=== PATIENT | female | born 1995 | race Caucasian/White ===

== ENCOUNTER 2018-06-08 19:32 | Inpatient (IN) | payer OTHER ==
[~2018-06-08 19:32] MED LIST: Dexamethasone 20 MG/5 ML VIAL ONE; Ketorolac Tromethamine 30 MG/ML VIAL ONE; Ondansetron HCl/PF 4 MG/2 ML Vial ONE; PHENYLEPHRINE-NS 100 MCG/ML 10 ML SYRINGE ONE
[2018-06-08 19:54] LABS: Amnisure Test RUPTURE DETECTED (No Rupture)
[2018-06-08 19:55] LABS: Amnisure Internal Control QC ACCEPTABLE (ACCEPTABLE)
[2018-06-08] MEDS ORDERED: Promethazine HCl 25 MG/ML VIAL IM PRN ×2 (20:15→23:00)
[2018-06-08] MEDS ORDERED: Acetaminophen 500 MG TAB PO PRN (20:15)
[2018-06-08] MEDS ORDERED: Ondansetron HCl/PF 4 MG/2 ML Vial IVP PRN ×3 (20:15→23:00)
[2018-06-08] MEDS ORDERED: Butorphanol Tartrate 1 MG/ML VIAL SLOW IVP PRN (20:15)
[2018-06-08] MEDS ORDERED: NS / Oxytocin 40 units/1000ml 1,000 ML IV PRN (20:15)
[2018-06-08] MEDS ORDERED: Lidocaine 1% (PF) 30 ML VIAL SC PRN (20:15)
[2018-06-08] MEDS ORDERED: NS w/ Oxytocin 10 units 500 ML IV SCH (20:15)
[2018-06-08] MEDS ORDERED: Penicillin G Potassium 5 MILL.UNITS in Sodium Chloride 0.9% 100 ML IVPB SCH (20:15)
[2018-06-08] MEDS ORDERED: Ibuprofen 800 MG TAB PO PRN (20:15)
--- NOTE | 2018-06-08 20:35 | PDOC.LDHP ---
Labor and Delivery H&P Chief complaint: loss of fluid HPI: This is a 23 yo female, at 37.2 by LMP (38.6 by 3rd tri US) presenting to L&D with a cc of SROM. She states that she had a loss of fluid at ~14:00 today. She denies any vaginal bleeding, contractions, or abdominal pain. She denies any headaches, chest pain, or nausea and vomiting. She states that she has been constipated and has had some lower leg edema. Current gestational age (weeks): 37 (37.2) Due date: 06/28/18 Dating criteria: last menstrual period, other (third trimester US 38.6) Current complications: none Abnormal US findings: No Past Medical History: Pt. has no past medical history Current medications: pre- vitamins Previous surgical history: none Social history: other (Denies tobacco use during this pregnacy, States that she smoked for 3 months in the past.) - Physical Exam Vital signs reviewed and normal: yes General: NAD, resting Heart: RRR Lungs: CTAB Abdomen: gravid Extremeties: trace edema FHT: variability present (Reactive strip, FHT baseline in the 130s-140s, moderate variability, no contractions present) - Vaginal Exam cm dilated: 1 Effacement: 50% Station: -3 - OB Labs Blood type: unknown RH: unknown Antibody Screen: unknown HIV: unknown RPR: unknown GBS: unknown - Assessment L&D Assessment: term rupture in membranes (No contractions at this time, drawing OB labs now due to poor PN follow up) - Plan Plan: admit to L&D, cervical ripening (Cytotec 50mg PO q4 x2 dose. Will recheck at that time and consider pitocin augmentation), GBS antibiotic prophylaxis, other (Currently refuses epidural) <Nir Ryder - Last Filed: 06/08/18 20:31> <Fernandez Jeffery - Last Filed: 06/08/18 20:59> Allergies/Adverse Reactions: Allergies Allergy/AdvReac Type Severity Reaction Status Date / Time No Known Allergies Allergy Verified 06/08/18 20:01 Attending Addendum - Attending Addendum Date/Time: 06/08/182056 I personally evaluated the patient and discussed the management with Residents. I agree with the History, Examination, Assessment and Plan. This at term has been ruptured since 2PM. Will give Cytotec PO with pitocin to follow and start Pen G for unknown GBS status. <Fernandez Jeffery - Last Filed: 06/08/18 20:59>
[2018-06-08 20:40] LABS: Hemoglobin 10.4 g/dL (12.0-16.0); Mean Corpuscular HGB CONC 33.8 g/dL (32.0-36.0); Mean Corpuscular Volume 88.7 fL (78.0-98.0); Mean Platelet Volume 8.6 fL (7.4-10.4); Platelet Count 175 thou/uL (130-400); RBC Distribution Width 11.9 % (11.5-14.5); Red Blood Cell (RBC) Count 3.48 mill/uL (4.20-5.40); White Blood Cell (WBC) Count 8.6 thou/uL (4.8-10.8)
[2018-06-08] MEDS: Misoprostol 100 MCG TAB PO SCH (21:03)
[2018-06-08] MEDS: Penicillin G 2.5 MILL.units 2.5 MILL.UNITS in Premix Bag 1 BAG IVPB SCH (21:04)
[2018-06-08] MEDS: Lactated Ringer's 1,000 ML IV SCH (21:05)
[2018-06-08 21:26] LABS: Syphilis Antibody Nonreactive (Nonreactive); Syphilis Antibody Index 0.06 S/CO (<1.00 Non-Reactive)
[2018-06-08] MEDS ORDERED: Terbutaline Sulfate 1 MG/ML VIAL ONE (21:27)
[2018-06-08] MEDS ORDERED: CEFAZOLIN/Water 2 GM/20 ML SYRINGE ONE (21:37)
[2018-06-08] MEDS ORDERED: Lidocaine 1% PF 5 ML VIAL ONE (21:53)
[2018-06-08] MEDS ORDERED: Bupivacaine 0.75% W/DEXTROSE 8.25% 2 ML AMP ONE (21:53)
[2018-06-08] MEDS ORDERED: Morphine PF 1 MG/ML SYR ONE (21:54)
[2018-06-08] MEDS ORDERED: PHENYLEPHRINE-NS 100 MCG/ML 10 ML SYRINGE ONE (22:10)
[2018-06-08] MEDS ORDERED: Ketorolac Tromethamine 30 MG/ML VIAL ONE (22:13)
[2018-06-08] MEDS ORDERED: Ondansetron HCl/PF 4 MG/2 ML Vial ONE (22:13)
[2018-06-08] MEDS ORDERED: Dexamethasone 4 mg/ml Vial ONE (22:13)
[2018-06-08] MEDS ORDERED: Oxytocin 10 UNITS/ML VIAL ONE (22:13)
[2018-06-08 22:33] LABS: Actual Bicarbonate (HCO3a) 22.8 mEq/L (22-28); Analyzer IN Cardio OR; Base Excess (BEa) -4.3 mEq/L (-2.0 to +3.0)
[2018-06-08] MEDS ORDERED: diphenhydrAMINE 50 MG/ML VIAL IVP PRN (23:00)
[2018-06-08] MEDS ORDERED: Eucerin (Mineral Oil/Petrolatum,White) 30 gm Jar TOP PRN (23:00)
[2018-06-08] MEDS ORDERED: Ketorolac Tromethamine 30 MG/ML VIAL IVP PRN (23:00)
[2018-06-08] MEDS ORDERED: Promethazine HCl 25 MG SUPP PR PRN (23:00)
[2018-06-08] MEDS ORDERED: Ketorolac Tromethamine 30 MG/ML VIAL IVP SCH (23:00)
[2018-06-08] MEDS ORDERED: Meperidine HCl/PF 25 MG/ML VIAL SLOW IVP PRN (23:00)
[2018-06-08] MEDS ORDERED: Communication Order-Pharmacy FS SCH (23:00)
[2018-06-08] MEDS ORDERED: HYDROmorphone 2 MG/ML VIAL SLOW IVP PRN (23:00)
[2018-06-08] MEDS ORDERED: Naloxone HCl 0.4 mg/ml Vial IV PRN (23:00)
[2018-06-08] MEDS ORDERED: Naloxone HCl 0.4 mg/ml Vial IVP PRN ×2 (23:00)
[2018-06-09] MEDS ORDERED: NS / Oxytocin 40 units/1000ml 1,000 ML ONE (00:20)
[2018-06-09 00:46] LABS: HBSAg Index 0.16 S/CO (0-0.99); HIV (1/2) Antibody/Antigen Non-Reactive (NonReactive); HIV 1/2 INDEX 0.14 S/CO (<1.00); Hep B Surf Ag Non-Reactive S/CO (NonReactive)
[2018-06-09] MEDS ORDERED: Lanolin Ointment 7 GM TUBE TOP PRN (01:37)
[2018-06-09] MEDS ORDERED: HYDROcodone/Acetaminophen 5/325 mg Tablet PO PRN ×2 (01:37)
[2018-06-09] MEDS ORDERED: Adacel (T-DAP) 0.5 ML VIAL IM ONE (01:37)
[2018-06-09] MEDS ORDERED: Ondansetron HCl/PF 4 MG/2 ML Vial IVP PRN (01:37)
[2018-06-09] MEDS ORDERED: NS / Oxytocin 40 units/1000ml 1,000 ML IV SCH (01:37)
[2018-06-09] MEDS ORDERED: Bisacodyl 10 MG SUPP PR PRN (01:37)
[2018-06-09] MEDS ORDERED: Acetaminophen 325 MG TAB PO PRN (01:37)
[2018-06-09] MEDS ORDERED: Simethicone Chewable 80 MG TAB PO PRN (01:37)
--- NOTE | 2018-06-09 02:24 | OP ---
DATE OF OPERATION: 06/08/2018 PREOPERATIVE DIAGNOSES: 1. Term-intrauterine with ruptured membranes. 2. bradycardia with inability to tolerate labor. POSTOPERATIVE DIAGNOSES: 1. Term-intrauterine with ruptured membranes. 2. bradycardia with inability to tolerate labor. PROCEDURE: Primary low segment transverse via Pfannenstiel incision. SURGEON: Shree Jeffery MD FINANCIAL RESERVE CLERK SURGEON: Cuauhtemoc Bloom DO, Resident physician FINDINGS: 1. Viable male infant, weight 7 pounds and 1 ounce found in the transverse position with Apgars 8 and 8. 2. Normal uterus, tubes, and ovaries bilaterally. PROPHYLAXIS: Ancef 2 grams IV. ESTIMATED BLOOD LOSS: 700 mL COMPLICATIONS: None. PATIENT DESCRIPTION: This patient had been transferred from [facility] with ruptured membranes. She was admitted and found to be ruptured. A plan was to give her oral Cytotec due to her unfavorable cervix and then proceed with Pitocin induction. After her first dose of Cytotec, she began to contract. She had a 10-minute bradycardia followed by multiple deep variables with late return. Due to inability to tolerate labor, the patient was taken to the operating room. TECHNIQUE IN DETAIL: In the OR, she was prepped and draped in the usual fashion after a spinal anesthetic was placed. The heart tones were stable during this time. After the prep, a transverse incision was made two fingerbreadths above the symphysis pubis and the abdomen was entered in layers. The uterus was identified and a bladder flap was created in the peritoneum. A transverse incision was made across the lower uterine segment and was extended bluntly. The clear fluid was noted and the fetus was delivered from the occiput transverse position. A viable fetus was obtained. Cord was clamped and cut and the baby was placed on the warmer. NICU staff was in attendance. Cord gases and cord blood were then obtained. The placenta was manually removed. The uterus was exteriorized and was curetted with a dry lap to remove all remaining placental fragments. Closure of the uterine incision was accomplished using a running locking suture of #1 Maxon. Interrupted #1 chromics were placed for complete hemostasis. The pelvic gutters were cleared of all clots and debris and the uterus was replaced in the abdominal cavity. The fascia was closed with two sutures of #1 PDS brought from each side. The subcutaneous tissue was thoroughly irrigated and made dry using Bovie coagulation technique. The skin was closed with metal oneyda. Sponge, lap, and needle counts were correct. The patient tolerated the procedure well and was taken to the recovery room in good condition. GREGORY
[2018-06-09 06:05] LABS: Hemoglobin 9.9 g/dL (12.0-16.0); Mean Corpuscular HGB CONC 33.8 g/dL (32.0-36.0); Mean Corpuscular Hemoglobin 30.2 pg (27.0-31.0); Mean Corpuscular Volume 89.1 fL (78.0-98.0); Mean Platelet Volume 8.8 fL (7.4-10.4); Platelet Count 174 thou/uL (130-400); RBC Distribution Width 11.7 % (11.5-14.5); Red Blood Cell (RBC) Count 3.28 mill/uL (4.20-5.40); White Blood Cell (WBC) Count 13.9 thou/uL (4.8-10.8)
[2018-06-09] MEDS: Ibuprofen 800 MG TAB PO SCH ×3 (06:13→21:30)
[2018-06-09] MEDS: Misoprostol 100 MCG TAB PO SCH (06:35)
--- NOTE | 2018-06-09 07:09 | PDOC.PP ---
Post Progress Note Post Day #: 1 Subjective: Patient feels well. Denies fever, chills, SOB. Looking forward to ordering breakfast. Has not ambulated yet. Pad changed once. PO intake tolerated: no (pt has not attempted to eat) Flatus: yes Ambulation: no Vital Signs (12 hours) Temp Pulse Resp BP Pulse Ox 06/09/18 01:37 99.2 F 68 28 H 108/64 99 06/08/18 20:21 98.6 F 85 16 124/70 06/08/18 20:17 98.6 F 65 18 120/70 06/08/18 20:00 98.6 F 86 18 06/08/18 19:42 98.6 F 86 18 124/70 Weight Weight 200 g - Physical Examination General: NAD Cardiovascular: RRR Respiratory: clear to auscultation bilaterally, non-labored breathing Abdominal: + bowel sounds, lochia, no distention, appropriately TTP Extremities: negative homans (B) Deviation from normal: incision covered by compression bandage. bandage clean and intact. Neurological: no gross focal deficits Psychiatric: A&Ox3, normal affect Result Diagrams: 06/09/18 05:38 Additional Labs: Post Labs Blood Type A NEGATIVE 06/08/18 20:26 Hep Bs Antigen Non-Reactive S/CO (NonReactive) 06/08/18 20:27 (1) S/P primary low transverse Code(s): Z98.891 - HISTORY OF UTERINE SCAR FROM PREVIOUS SURGERY Status: Acute Comment: 23 yr old G2 now P2 delivered @ 37.2 wks via pLTCS on 06/08/18 @ 22:18 for NRFHTs. bradycardia for 8 min w/ recurrent deep variable decelerations. POD 1. -Pt doing well overall. -incision bandage in place, clean and dry. Plan to remove ppd 1. -routine care -plan to formula feed only -Plan for patient to be here at least 48 hrs. (2) Late care Code(s): O09.30 - SUPRVSN OF PREG W INSUFFICIENT ANTENAT CARE, UNSP TRIMESTER Status: Acute Comment: Presented late to PNC. Poor compliance. (3) Need for rhogam due to Rh negative mother Code(s): Z29.13 - ENCOUNTER FOR PROPHYLACTIC RHO(D) IMMUNE GLOBULIN Status: Acute Comment: Baby blood type A+. Mom A-. Toyin neg. Mother to receive rhogam . (4) GBS screening not performed Code(s): SIE5597 - Status: Acute Comment: Due to poor compliance. s/p pLTCS. - Assessment/Plan 23 yo G2 now P2 s/p primary at 37.2 wks vs 38.6 weeks. Post op day 1. 1. day 1 -meeting all milestones appropriately -H/H stable -continue routine care 2. GBS unknown -monitor mom and baby for 48hrs
[2018-06-09] MEDS: Lactated Ringer's 1,000 ML IV SCH (09:32)
[2018-06-09] MEDS: Prenatal Vitamin 1 TAB PO SCH (09:33)
[2018-06-09] MEDS: Docusate Calcium (SURFAK) 240 MG CAP PO SCH ×2 (09:33→21:24)
[2018-06-09] MEDS: Ferrous Sulfate 325 MG TAB PO SCH ×2 (09:33→21:24)
[2018-06-09] MEDS: Penicillin G 2.5 MILL.units 2.5 MILL.UNITS in Premix Bag 1 BAG IVPB SCH (11:51)
[2018-06-10] MEDS: Ibuprofen 800 MG TAB PO SCH ×3 (00:03→16:29)
--- NOTE | 2018-06-10 05:56 | PDOC.PP ---
Post Progress Note Post Day #: 2 Subjective: Patient is feeling well. Reports pain is well controlled. No complaints. Formula feeding only. Desires control but unsure what kind. PO intake tolerated: yes Flatus: yes Ambulation: yes Vital Signs (12 hours) Temp Pulse Resp BP 06/10/18 04:15 97.7 F 70 20 103/52 L 06/10/18 00:00 97.9 F 76 20 102/54 L 06/09/18 20:10 97.8 F 78 20 110/77 Weight Weight 200 g - Physical Examination General: NAD Cardiovascular: no m/r/g, RRR Respiratory: clear to auscultation bilaterally, non-labored breathing Abdominal: + bowel sounds, lochia, no distention, appropriately TTP Skin: CS incision dry & intact Neurological: no gross focal deficits Psychiatric: A&Ox3, normal affect Result Diagrams: 06/09/18 05:38 Additional Labs: Post Labs Blood Type A NEGATIVE 06/08/18 20:26 Hep Bs Antigen Non-Reactive S/CO (NonReactive) 06/08/18 20:27 (1) S/P primary low transverse Code(s): Z98.891 - HISTORY OF UTERINE SCAR FROM PREVIOUS SURGERY Status: Acute Comment: 23 yr old G2 now P2 delivered @ 39.0 wks by 14.2 wk sono via pLTCS on 06/08/18 @ 22:18 for NRFHTs. bradycardia for 8 min w/ recurrent deep variable decelerations. POD #2. -Pt doing well overall. -incision healing well. will need staple removal approx 5 days PP -routine care -plan to formula feed only (2) Late care Code(s): O09.30 - SUPRVSN OF PREG W INSUFFICIENT ANTENAT CARE, UNSP TRIMESTER Status: Acute Comment: Presented late to PNC. Poor compliance. (3) Need for rhogam due to Rh negative mother Code(s): Z29.13 - ENCOUNTER FOR PROPHYLACTIC RHO(D) IMMUNE GLOBULIN Status: Acute Comment: Baby blood type A+. Mom A-. Toyin neg. Mother received rhogam . (4) GBS screening not performed Code(s): [id number] - Status: Acute Comment: Due to poor compliance. Will be 48hrs at 2300 and will plan for discharge tomorrow unless concerns arise. <Keshia Rose - Last Filed: 06/10/18 09:02> Vital Signs (12 hours) Temp Pulse Resp BP 06/10/18 17:05 97.7 F 76 20 119/68 06/10/18 11:56 97.9 F 67 22 H 06/10/18 11:20 97.9 F 67 22 H 108/61 06/10/18 07:50 98.0 F 74 18 114/63 Weight Weight 7.055 oz Result Diagrams: 06/09/18 05:38 Additional Labs: Post Labs Blood Type A NEGATIVE 06/08/18 20:26 Hep Bs Antigen Non-Reactive S/CO (NonReactive) 06/08/18 20:27 Rubella IgG Antibody 2.61 index (Immune >0.99) 06/08/18 20:26 <Antony Foster - Last Filed: 06/10/18 18:02> Attending Addendum - Attending Addendum Date/Time: 06/10/18 1801 I personally evaluated the patient and discussed the management with Dr. Rose I agree with the History, Examination, Assessment and Plan documented above with any addition or exceptions noted below. <Antony Foster - Last Filed: 06/10/18 18:02>
[2018-06-10] MEDS: Prenatal Vitamin 1 TAB PO SCH (08:50)
[2018-06-10] MEDS: Ferrous Sulfate 325 MG TAB PO SCH ×2 (08:50→21:57)
[2018-06-10] MEDS: Docusate Calcium (SURFAK) 240 MG CAP PO SCH ×2 (08:50→22:12)
[2018-06-11] MEDS: Ibuprofen 800 MG TAB PO SCH ×2 (00:49→09:38)
--- NOTE | 2018-06-11 05:48 | PDOC.PP ---
Post Progress Note Post Day #: 3 Subjective: Pt feels well and is excited to go home. Pain well controlled. No complaints. PO intake tolerated: yes Flatus: yes Ambulation: yes Vital Signs (12 hours) Temp Pulse Resp BP 06/10/18 20:50 97.6 F 98 18 121/78 Weight Weight 200 g - Physical Examination General: NAD Cardiovascular: no m/r/g, RRR Respiratory: clear to auscultation bilaterally, non-labored breathing Abdominal: + bowel sounds, no distention, appropriately TTP Fundus firm & at: umbilicus Extremities: negative homans (B) Skin: CS incision dry & intact (oneyda in place) Neurological: no gross focal deficits Psychiatric: A&Ox3, normal affect Result Diagrams: 06/09/18 05:38 Additional Labs: Post Labs Blood Type A NEGATIVE 06/08/18 20:26 Hep Bs Antigen Non-Reactive S/CO (NonReactive) 06/08/18 20:27 Rubella IgG Antibody 2.61 index (Immune >0.99) 06/08/18 20:26 (1) S/P primary low transverse Code(s): Z98.891 - HISTORY OF UTERINE SCAR FROM PREVIOUS SURGERY Status: Acute Comment: 23 yr old G2 now P2 delivered @ 39.0 wks by 14.2 wk sono via pLTCS on 06/08/18 @ 22:18 for NRFHTs. bradycardia for 8 min w/ recurrent deep variable decelerations. POD #3. -Pt doing well overall. -incision healing well. will need staple removal approx 5-7 days PP -routine care -plan to formula feed only (2) Late care Code(s): O09.30 - SUPRVSN OF PREG W INSUFFICIENT ANTENAT CARE, UNSP TRIMESTER Status: Acute Comment: Presented late to PNC. Poor compliance. (3) Need for rhogam due to Rh negative mother Code(s): Z29.13 - ENCOUNTER FOR PROPHYLACTIC RHO(D) IMMUNE GLOBULIN Status: Acute Comment: Baby blood type A+. Mom A-. Toyin neg. Mother received rhogam . (4) GBS screening not performed Code(s): [id number] - Status: Acute Comment: Has been monitored for greater than 48hrs. Plan to discharge home today. <Keshia Rose - Last Filed: 06/11/18 08:42> Weight Weight 7.055 oz Result Diagrams: 06/09/18 05:38 Additional Labs: Post Labs Blood Type A NEGATIVE 06/08/18 20:26 Hep Bs Antigen Non-Reactive S/CO (NonReactive) 06/08/18 20:27 Rubella IgG Antibody 2.61 index (Immune >0.99) 06/08/18 20:26 <Antony Foster - Last Filed: 06/12/18 09:01> Attending Addendum - Attending Addendum Date/Time: 06/12/18 0900 I personally evaluated the patient and discussed the management with Dr. Rose. I agree with the History, Examination, Assessment and Plan documented above with any addition or exceptions noted below. <Antony Foster - Last Filed: 06/12/18 09:01>
[2018-06-11 08:03] VITALS: BP 110/65; TEMP 98
[2018-06-11] MEDS: Docusate Calcium (SURFAK) 240 MG CAP PO SCH (09:39)
[2018-06-11] MEDS: Ferrous Sulfate 325 MG TAB PO SCH (09:39)
[2018-06-11] MEDS: Prenatal Vitamin 1 TAB PO SCH (09:39)
== END 2018-06-11 15:23 | disposition home or self-care (01) | DRG 766 ==
LOC: L&D/OP 19:32 → L&D 20:26 → 3SE 06-09 01:36 → 3SW 06-09 08:58
PROVIDERS: ADMIT Obstetrics & Gynecology; ATTEND Obstetrics & Gynecology
PROC: 10D00Z1 Extraction of Products of Conception, Low, Open Approach (ICD-10-PCS; principal; 2018-06-08)
DX: O76 Abnormality in fetal heart rate and rhythm complicating labor and delivery (principal); Z3A.39 39 weeks gestation of pregnancy; Z37.0 Single live birth; O09.30 Supervision of pregnancy with insufficient antenatal care, unspecified trimester; Z29.13 Encounter for prophylactic Rho(D) immune globulin
CPT/HCPCS: 36415; 51702; 82805; 84112; 85027; 85460; 85461; 86762; 86780; 86850; 86900; 86901; 87340; 87389; 88307; 90384; 96372; 99285; J1100; J1885; J2001; J2274; J2405; J2540; J2590; J3105; J3490

== ENCOUNTER 2019-01-07 12:48 | Emergency (ER) | payer MEDICAID ==
--- NOTE | 2019-01-07 15:14 | ULT ---
TRANSABDOMINAL AND TRANSVAGINAL PELVIC ULTRASOUND WITH DOPPLER: Date: 01-07-19 Provided Clinical History: Vaginal bleeding, elevated beta HCG. FINDINGS: The uterus measures about 11.7 x 7.2 x 7.6 cm. There is prominent material of complex echogenicity pr esent within the uterine endometrial canal. This complex material is somewhat most conspicuous in the region of the lower uterine segment/cervical canal. Color doppler demonstrates flow to some of this material. Right ovary measures about 2.5 cm and appears sonographically unremarkable. The left ovary is not distinctly identified. There is a small amount of simple appearing free pelvic fluid. IMPRESSION: 1. No evidence for an intrauterine gestational sac. 2. Complex vascular material within the endometrial canal, which in the setting of elevated Beta HCG suggests products of conception related to failure. Gestational trophoblastic disease could also be considered. POS: TPC
[2019-01-10 23:57] LABS: Chlamydia by PCR Not Detected (NotDetected); GC by PCR Not Detected (NotDetected)
== END 2019-01-07 15:55 | disposition home or self-care (01) ==
LOC: ERS 12:48
DX: O03.9 Complete or unspecified spontaneous abortion without complication (principal)
CPT/HCPCS: 36416; 76856; 86900; 86901; 87480; 87491; 87510; 87591; 87660; 90384; 96372